=== PATIENT | female | born 2000 | race Caucasian/White ===

== ENCOUNTER 2018-06-16 16:43 | Inpatient (IN) | payer MEDICAID ==
[~2018-06-16] VITALS: Ht 172.7 cm; Wt 90.5 kg
--- NOTE | ~2018-06-16 | OP ---
PATIENT NAME: JUANPABLO JAY MEDICAL RECORD: [id number] :98 LOCATION:D.M3 D.1213 ADMISSION DATE:06/16/18 SURGEON: FLOR PAINTER MD DATE OF OPERATION: 06/22/2018 SURGEON: Flor Painter MD ANESTHESIA: General anesthesia by Jaime Montes De Oca CRNA. DIAGNOSES: Left renal stone with pyelonephritis, solitary left kidney. PROCEDURE: Cystoscopy, left ureteral stent exchange, left retrograde pyelogram, left ureteroscopy. FINDINGS: Radiodense renal stone has migrated to the lower pole lateral carlton. BLOOD LOSS: None. CLINICAL HISTORY: This is a 17-year-old female with a solitary left kidney. She presented with left pyelonephritis. The cultures are growing E. coli sensitive to Levaquin. She is currently on IV Levaquin. She has a 7-mm renal stone. Initially when she was having high fevers, we placed a left ureteral stent to let her decompress and allowed her white blood cell count to normalize with IV Levaquin. She has been afebrile for a few days now. Today, we are going to try to remove the infected renal stone. She is not allergic to any medications. Since she already had Levaquin IV on the floor, we did not give her any further antibiotics. DESCRIPTION OF PROCEDURE: The patient was given induction of general anesthetic. She was then placed in the dorsal lithotomy position and prepped and draped. A 21-Cameroonian cystoscope with 30-degree lens was used for visualization. The stone is radiodense. We could see it on fluoroscopy. In order to fully identify its location within the kidney, we performed a left retrograde pyelogram. The left ureteral orifice was intubated with an open-ended ureteral catheter. Diluted contrast was then injected. This showed that the stone was in a lower pole lateral carlton. Through the lumen of the ureteral catheter, we inserted a Sensor wire up to the renal pelvis. The ureteral catheter was then removed. Over the Sensor wire, we inserted a 12/14 ureteral access sheath. Once the access sheath was in correct position, the ureteral dilator portion of the access sheath as well as the wire was removed, leaving the sheath in place. A flexible ureteroscope was then introduced and we entered into the left kidney. The calices could be easily seen. However, the angle of the lower pole lateral carlton is very hard for me to get a wire into. I attempted multiple times to try to get a basket into this carlton, but I was unsuccessful. The scope has to almost retroflex on itself in order to get into this carlton. After multiple unsuccessful attempts, I finally decided to abandon this approach. The scope was removed. The dilator of the sheath as well as the wire were placed back in. The wire was left in position while the ureteral access sheath was entirely removed. The wire was then backloaded on to the cystoscope. Over the wire, we inserted the 6-Cameroonian x 24-cm ureteral stent. The string on the distal end of the stent is maintained. It was taped to the suprapubic region with a piece of Tegaderm. The scope was removed entirely before this. I will arrange for the patient to have lithotripsy as an outpatient. OPERATIVE REPORT [id number] JUANPABLO JAY TRANSINT:[id number] Voice Confirmation ID: [id number] DOCUMENT ID: [id number] FLOR PAINTER MD at 0820 CC: [id number] DICTATION DATE: 06/22/18 1632 GYMNASTIC TEACHER: 06/22/18 2311 DIS IN 06/22/18 [facility] [address] [place] [address]
--- NOTE | ~2018-06-16 | OP ---
PATIENT NAME: JUANPABLO JAY MEDICAL RECORD: [id number] :98 LOCATION:D.M3 D.1213 ADMISSION DATE:06/16/18 SURGEON: RUBEN PAINTER MD DATE OF OPERATION: 06/17/2018 SURGEON: Ruben Painter MD ANESTHESIA: General anesthesia by Pravin Sheridan CRNA DIAGNOSES: Solitary left kidney, left pyelonephritis with a left 7 mm renal stone and left hydronephrosis. PROCEDURES: Cystoscopy, bilateral retrograde pyelogram, left ureteral stent insertion 6-Cymraes x 24 cm without string attached. FINDINGS: On cystoscopy, she has single ureteral orifices bilaterally. The right ureter is full length of a blind ending on the retrograde pyelogram. The left ureter shows no obstruction, but there is high-grade hydronephrosis of the left UP junction. There is radiodense left renal stone 7 mm in size. BLOOD LOSS: None. CLINICAL HISTORY: This is a 17-year-old female who is not known to have a kidney stone previously. There is a positive family history of kidney stones. She has been complaining of nausea and vomiting, fevers and headaches for the past 5 days. Yesterday, she had severe left flank pain and she came to the Emergency Room. She has fevers up to [address] scan, she was found to have a solitary left kidney. There is a stone in the left kidney 7 mm in size. She has findings consistent with pyelonephritis in the left kidney. Her urine culture is growing Gram-negative rods. Her white blood cell count was 16.6 when she was admitted. With IV Levaquin, her white count has gone down somewhat to the 13 range. She still has high spiking fevers and ongoing left flank pain. Because she has a solitary left kidney with potential obstruction by a left kidney stone, I am going to insert a left ureteral stent and allow the left kidney to be relieved of any potential obstruction. We will then let her settle down and keep her on antibiotics until we can get rid of the infected stone at a later date. Since she is already on IV Levaquin, we did not give her any further antibiotics. DESCRIPTION OF PROCEDURE: The patient was given induction of general anesthesia. She was then placed in dorsal lithotomy position and prepped and draped. A 21-Cymraes cystoscope with 30-degree lens was used for visualization. She has a generally inflamed bladder due to her recent cystitis. She has ureteral orifices bilaterally. I therefore performed a retrograde pyelogram on the right ureter first. This shows a full length ureter with no hydronephrosis. It goes all the way up to where UP junction normally would be, but it is blind ending. We did not see any renal pelvis at all. We then turned our attention to the left ureter. A 5-Cymraes open-ended ureteral catheter was used to inject diluted contrast. The ureter was not hydronephrotic, but the kidney was extremely obstructed. It was hydronephrotic. Furthermore, once we allowed the contrast to drain out of the ureter, the kidney did not drain. She does have high-grade obstruction there. Through the lumen of the ureteral catheter, we inserted a Sensor wire up into the renal pelvis. We then removed the ureteral catheter entirely. Over the wire, we inserted the 6-Cymraes x 24-cm ureteral stent. Once the stent was in correct position, the wire was withdrawn entirely. OPERATIVE REPORT [id number] JUANPABLO JAY The distal end of the stent was pushed into the bladder using a pusher. Because I expect the patient will maintain the stent for a period of a couple of weeks at least, the string on the distal end of stent was removed. The bladder was emptied through the cystoscope and then the patient was awakened and brought to the recovery room. TRANSINT:[id number] Voice Confirmation ID: [id number] DOCUMENT ID: [id number] RUBEN PAINTER MD at 1338 CC: [id number] DICTATION DATE: 06/17/181842 AUTOMOBILE CONTRACT CLERK: 06/17/[id number] ADM IN [facility] [address] [place] [id number]
[2018-06-16] MEDS ORDERED: ADDERALL 30 MG30 MG PO (16:49)
[2018-06-16 17:10] LABS: BASOPHILS 0.1 % (0-2); EOSINOPHILS 0.1 % (0-7); HEMATOCRIT 35.9 % (36.0-48.0); HEMOGLOBIN 12.2 g/dL (12-16); IMMATURE GRANULOCYTES 0.3 % (0-5); LYMPHOCYTES 6.7 % (15-50); MCV 94.2 fL (80.0-100.0); MEAN PLATELET VOLUME 10.1 fL (7.4-10.4); MONOCYTES 10.4 % (2-11); NEUTROPHILS 82.4 % (40-80); RBC 3.81 10x6/uL (4.00-5.40); RDW 12.6 % (11.5-14.5); WBC 16.6 10x3/uL (4.8-10.8)
[2018-06-16 17:14] LABS: PLATELET COUNT 176 10x3/uL (130-400)
[2018-06-16 17:20] LABS: APPEARANCE HAZY (CLEAR); COLOR YELLOW (YELLOW)
[2018-06-16 17:21] LABS: BILIRUBIN NEGATIVE (NEGATIVE); GLUCOSE NEGATIVE (NEGATIVE); KETONE NEGATIVE (NEGATIVE); NITRITE NEGATIVE (NEGATIVE); PROTEIN TRACE mg/dL (NEGATIVE); UROBILINOGEN NORMAL (NORMAL)
[2018-06-16 17:22] LABS: BACTERIA MANY /hpf (NONE SEEN); MUCUS <1+ /lpf (NONE SEEN); RED CELLS - URINE 0-5 /hpf (0-5); WHITE CELLS - URINE >50 /hpf (0-5)
[2018-06-16 17:23] LABS: HCG URINE NEGATIVE (NEGATIVE)
[2018-06-16 18:31] LABS: ALKALINE PHOSPHATASE 50 U/L (46-116); ALT (SGPT) 10 U/L (10-68); AMYLASE - SERUM 20 U/L (25-115); CALC OSMOLALITY 270 mosm/kg (275-300); CALCIUM 8.4 mg/dL (8.5-10.1); CARBON DIOXIDE 26.7 mmol/L (21.0-32.0); CHLORIDE - SERUM 102 mmol/L (98-107); CREATININE - SERUM 0.9 mg/dL (0.6-1.3); GLUCOSE 95 mg/dL (74-106); LIPASE 57 U/L (73-393); POTASSIUM - SERUM 3.8 mmol/L (3.5-5.1); SODIUM 136 mmol/L (136-145); UREA NITROGEN 9 mg/dL (7-18); eGFR NON AFRICAN AMERICAN 85 mL/min (90-120)
[2018-06-16 20:00] VITALS: BP 114/66
[2018-06-16 21:26] VITALS: BP 114/66
[2018-06-17] VITALS (8 sets, daily range): BP systolic 50–125; BP diastolic 42–80; Ht 172.7 cm; Wt 90.5 kg
[2018-06-17] MEDS ORDERED: ACETAMINOPHEN500 M1 PO (02:15)
[2018-06-17] MEDS ORDERED: IBUPROFEN400 MG PO (02:16)
[2018-06-17 12:47] LABS: BASOPHILS 0.1 % (0-2); EOSINOPHILS 0.2 % (0-7); HEMATOCRIT 30.9 % (36.0-48.0); HEMOGLOBIN 10.2 g/dL (12-16); IMMATURE GRANULOCYTES 0.2 % (0-5); LYMPHOCYTES 8.2 % (15-50); MCH 31.5 pg (26.0-34.0); MCV 95.4 fL (80.0-100.0); MEAN PLATELET VOLUME 9.9 fL (7.4-10.4); MONOCYTES 8.1 % (2-11); NEUTROPHILS 83.2 % (40-80); RBC 3.24 10x6/uL (4.00-5.40); RDW 12.8 % (11.5-14.5); WBC 13.1 10x3/uL (4.8-10.8)
[2018-06-17 12:50] LABS: PLATELET COUNT 135 10x3/uL (130-400)
[2018-06-17 12:54] LABS: ALBUMIN 2.3 g/dL (3.4-5.0); ALKALINE PHOSPHATASE 49 U/L (46-116); ALT (SGPT) 11 U/L (10-68); BILIRUBIN - TOTAL 0.54 mg/dL (0.2-1.3); CALC OSMOLALITY 275 mosm/kg (275-300); CALCIUM 8.1 mg/dL (8.5-10.1); CARBON DIOXIDE 23.5 mmol/L (21.0-32.0); CHLORIDE - SERUM 106 mmol/L (98-107); CREATININE - SERUM 0.8 mg/dL (0.6-1.3); GLUCOSE 75 mg/dL (74-106); POTASSIUM - SERUM 3.6 mmol/L (3.5-5.1); SODIUM 139 mmol/L (136-145); UREA NITROGEN 9 mg/dL (7-18); eGFR NON AFRICAN AMERICAN > 90 mL/min (90-120)
[2018-06-18 00:20] VITALS: BP 124/61
[2018-06-18 04:18] VITALS: BP 102/69
[2018-06-18 04:51] LABS: BASOPHILS 0.1 % (0-2); EOSINOPHILS 0 % (0-7); HEMATOCRIT 29.7 % (36.0-48.0); HEMOGLOBIN 9.9 g/dL (12-16); IMMATURE GRANULOCYTES 0.4 % (0-5); LYMPHOCYTES 4.9 % (15-50); MCH 31.2 pg (26.0-34.0); MCHC 33.3 g/dL (31.0-37.0); MCV 93.7 fL (80.0-100.0); MEAN PLATELET VOLUME 9.9 fL (7.4-10.4); MONOCYTES 5.1 % (2-11); NEUTROPHILS 89.5 % (40-80); PLATELET COUNT 150 10x3/uL (130-400); RBC 3.17 10x6/uL (4.00-5.40); RDW 12.6 % (11.5-14.5)
[2018-06-18 05:06] LABS: WBC 17.2 10x3/uL (4.8-10.8)
[2018-06-18 05:21] LABS: ALBUMIN 2.1 g/dL (3.4-5.0); ALKALINE PHOSPHATASE 57 U/L (46-116); ALT (SGPT) 11 U/L (10-68); BILIRUBIN - TOTAL 0.25 mg/dL (0.2-1.3); CALC OSMOLALITY 274 mosm/kg (275-300); CALCIUM 7.9 mg/dL (8.5-10.1); CHLORIDE - SERUM 108 mmol/L (98-107); CREATININE - SERUM 0.7 mg/dL (0.6-1.3); POTASSIUM - SERUM 4.1 mmol/L (3.5-5.1); PROTEIN - SERUM 5.9 g/dL (6.4-8.2); SODIUM 137 mmol/L (136-145); UREA NITROGEN 10 mg/dL (7-18); eGFR NON AFRICAN AMERICAN > 90 mL/min (90-120)
[2018-06-18 05:26] LABS: GLUCOSE 138 mg/dL (74-106)
[2018-06-18 07:18] VITALS: BP 112/77
[2018-06-18 11:57] VITALS: BP 118/76
[2018-06-18 16:02] VITALS: BP 103/66
[2018-06-18 20:08] VITALS: BP 110/71
[2018-06-19] VITALS: BP 101/58
[2018-06-19 04:00] VITALS: BP 119/73
[2018-06-19 07:29] LABS: BASOPHILS 0.1 % (0-2); EOSINOPHILS 0 % (0-7); HEMATOCRIT 30.6 % (36.0-48.0); IMMATURE GRANULOCYTES 0.4 % (0-5); LYMPHOCYTES 12.5 % (15-50); MCH 31.3 pg (26.0-34.0); MCHC 32.7 g/dL (31.0-37.0); MCV 95.6 fL (80.0-100.0); MEAN PLATELET VOLUME 10.3 fL (7.4-10.4); MONOCYTES 6.4 % (2-11); NEUTROPHILS 80.6 % (40-80); RDW 13.2 % (11.5-14.5); WBC 16.7 10x3/uL (4.8-10.8)
[2018-06-19 07:37] LABS: PLATELET COUNT 230 10x3/uL (130-400)
[2018-06-19 07:48] LABS: ALBUMIN 2.3 g/dL (3.4-5.0); ALKALINE PHOSPHATASE 54 U/L (46-116); ALT (SGPT) 13 U/L (10-68); BILIRUBIN - TOTAL 0.14 mg/dL (0.2-1.3); CALC OSMOLALITY 279 mosm/kg (275-300); CALCIUM 8.3 mg/dL (8.5-10.1); CHLORIDE - SERUM 110 mmol/L (98-107); CREATININE - SERUM 0.8 mg/dL (0.6-1.3); GLUCOSE 95 mg/dL (74-106); POTASSIUM - SERUM 3.5 mmol/L (3.5-5.1); PROTEIN - SERUM 6.1 g/dL (6.4-8.2); SODIUM 141 mmol/L (136-145); UREA NITROGEN 10 mg/dL (7-18); eGFR NON AFRICAN AMERICAN > 90 mL/min (90-120)
[2018-06-19 07:49] VITALS: BP 134/68
[2018-06-19 11:00] VITALS: BP 114/75
[2018-06-19 15:00] VITALS: BP 99/54
[2018-06-19 21:52] VITALS: BP 109/71
[2018-06-20 00:24] VITALS: BP 101/48
[2018-06-20 04:15] VITALS: BP 123/69
[2018-06-20 07:04] LABS: BASOPHILS 0.1 % (0-2); EOSINOPHILS 0.6 % (0-7); HEMATOCRIT 30.8 % (36.0-48.0); HEMOGLOBIN 10.1 g/dL (12-16); IMMATURE GRANULOCYTES 0.3 % (0-5); LYMPHOCYTES 20.8 % (15-50); MCH 30.7 pg (26.0-34.0); MCHC 32.8 g/dL (31.0-37.0); MEAN PLATELET VOLUME 9.7 fL (7.4-10.4); MONOCYTES 10.8 % (2-11); NEUTROPHILS 67.4 % (40-80); PLATELET COUNT 235 10x3/uL (130-400); RBC 3.29 10x6/uL (4.00-5.40); RDW 13.2 % (11.5-14.5)
[2018-06-20 07:05] LABS: MCV 93.6 fL (80.0-100.0)
[2018-06-20 07:28] LABS: ALBUMIN 1.8 g/dL (3.4-5.0); ALKALINE PHOSPHATASE 70 U/L (46-116); BILIRUBIN - TOTAL 0.22 mg/dL (0.2-1.3); CALCIUM 7.1 mg/dL (8.5-10.1); CARBON DIOXIDE 20.8 mmol/L (21.0-32.0); CHLORIDE - SERUM 109 mmol/L (98-107); CREATININE - SERUM 0.7 mg/dL (0.6-1.3); GLUCOSE 84 mg/dL (74-106); POTASSIUM - SERUM 3.3 mmol/L (3.5-5.1); PROTEIN - SERUM 4.8 g/dL (6.4-8.2); SODIUM 140 mmol/L (136-145); eGFR NON AFRICAN AMERICAN > 90 mL/min (90-120)
[2018-06-20 07:30] LABS: ALT (SGPT) 24 U/L (10-68); CALC OSMOLALITY 274 mosm/kg (275-300); UREA NITROGEN 5 mg/dL (7-18)
[2018-06-20 07:39] VITALS: BP 118/64
[2018-06-20 11:21] VITALS: BP 123/84
[2018-06-20 16:05] VITALS: BP 132/73
[2018-06-21 00:25] VITALS: BP 111/73
[2018-06-21 04:31] VITALS: BP 124/76
[2018-06-21 06:13] LABS: BASOPHILS 0.1 % (0-2); EOSINOPHILS 0.6 % (0-7); HEMATOCRIT 31.1 % (36.0-48.0); HEMOGLOBIN 10.3 g/dL (12-16); IMMATURE GRANULOCYTES 0.6 % (0-5); MCHC 33.1 g/dL (31.0-37.0); MCV 93.7 fL (80.0-100.0); MEAN PLATELET VOLUME 9.6 fL (7.4-10.4); MONOCYTES 14.7 % (2-11); PLATELET COUNT 260 10x3/uL (130-400); RBC 3.32 10x6/uL (4.00-5.40); RDW 13.1 % (11.5-14.5); WBC 9.5 10x3/uL (4.8-10.8)
[2018-06-21 06:31] LABS: ALBUMIN 1.8 g/dL (3.4-5.0); ALKALINE PHOSPHATASE 90 U/L (46-116); ALT (SGPT) 51 U/L (10-68); BILIRUBIN - TOTAL 0.29 mg/dL (0.2-1.3); CALC OSMOLALITY 270 mosm/kg (275-300); CALCIUM 7.9 mg/dL (8.5-10.1); CARBON DIOXIDE 23.9 mmol/L (21.0-32.0); CHLORIDE - SERUM 106 mmol/L (98-107); CREATININE - SERUM 0.8 mg/dL (0.6-1.3); GLUCOSE 81 mg/dL (74-106); POTASSIUM - SERUM 4.1 mmol/L (3.5-5.1); PROTEIN - SERUM 5.5 g/dL (6.4-8.2); SODIUM 137 mmol/L (136-145); UREA NITROGEN 7 mg/dL (7-18); eGFR NON AFRICAN AMERICAN > 90 mL/min (90-120)
[2018-06-21 07:26] VITALS: BP 118/65
[2018-06-21 15:14] VITALS: BP 126/70
[2018-06-21 21:31] VITALS: BP 147/88
[2018-06-22 05:11] VITALS: BP 119/71
[2018-06-22 05:26] LABS: BASOPHILS 0.1 % (0-2); HEMATOCRIT 34.5 % (36.0-48.0); HEMOGLOBIN 11.5 g/dL (12-16); IMMATURE GRANULOCYTES 1.3 % (0-5); LYMPHOCYTES 37.4 % (15-50); MCH 31.2 pg (26.0-34.0); MCHC 33.3 g/dL (31.0-37.0); MCV 93.5 fL (80.0-100.0); MEAN PLATELET VOLUME 9.5 fL (7.4-10.4); MONOCYTES 11.8 % (2-11); NEUTROPHILS 47.4 % (40-80); PLATELET COUNT 309 10x3/uL (130-400); RBC 3.69 10x6/uL (4.00-5.40); RDW 12.9 % (11.5-14.5); WBC 7.5 10x3/uL (4.8-10.8)
[2018-06-22 05:40] LABS: ALKALINE PHOSPHATASE 84 U/L (46-116); BILIRUBIN - TOTAL 0.22 mg/dL (0.2-1.3); CALC OSMOLALITY 274 mosm/kg (275-300); CALCIUM 7.9 mg/dL (8.5-10.1); CARBON DIOXIDE 27.5 mmol/L (21.0-32.0); CHLORIDE - SERUM 104 mmol/L (98-107); CREATININE - SERUM 0.8 mg/dL (0.6-1.3); GLUCOSE 84 mg/dL (74-106); SODIUM 139 mmol/L (136-145); UREA NITROGEN 6 mg/dL (7-18); eGFR NON AFRICAN AMERICAN > 90 mL/min (90-120)
[2018-06-22 05:45] LABS: ALT (SGPT) 37 U/L (10-68)
[2018-06-22 07:45] VITALS: BP 124/84
[2018-06-22 11:24] VITALS: BP 142/75
[2018-06-22 17:27] VITALS: BP 144/81
== END 2018-06-22 19:22 | disposition home or self-care (01) | DRG 661 ==
LOC: D.ER 16:43 → D.M3 18:55 → D.ER 19:46 → D.M3 06-22 19:22
PROVIDERS: Emergency Medicine; Family Medicine; Urology
PROC: BT141ZZ Fluoroscopy of Kidneys, Ureters and Bladder using Low Osmolar Contrast (ICD-10-PCS; principal; 2018-06-17 17:45)
PROC: 0T778DZ Dilation of Left Ureter with Intraluminal Device, Via Natural or Artificial Opening Endoscopic (ICD-10-PCS; 2018-06-17 17:45)
PROC: 0T778DZ Dilation of Left Ureter with Intraluminal Device, Via Natural or Artificial Opening Endoscopic (ICD-10-PCS; 2018-06-22)
PROC: 0TP98DZ Removal of Intraluminal Device from Ureter, Via Natural or Artificial Opening Endoscopic (ICD-10-PCS; 2018-06-22)
PROC: BT1F1ZZ Fluoroscopy of Left Kidney, Ureter and Bladder using Low Osmolar Contrast (ICD-10-PCS; 2018-06-22)
DX: N10 Acute pyelonephritis (principal); D50.9 Iron deficiency anemia, unspecified; E86.9 Volume depletion, unspecified; F90.9 Attention-deficit hyperactivity disorder, unspecified type; K59.09 Other constipation; F41.9 Anxiety disorder, unspecified; B96.20 Unspecified Escherichia coli [E. coli] as the cause of diseases classified elsewhere; N20.0 Calculus of kidney

== ENCOUNTER 2018-06-29 11:35 | Day surgery (SDC) | payer BC ==
[~2018-06-29] VITALS: Ht 170.2 cm; Wt 90.9 kg
--- NOTE | ~2018-06-29 | OP ---
PATIENT NAME: JUANPABLO JAY MEDICAL RECORD: [id number] :98 LOCATION:JAROD ADMISSION DATE: SURGEON: FLOR PAINTER MD DATE OF OPERATION: 06/29/2018 SURGEON: Flor Painter MD ANESTHESIA: TIVA by Safia Escalante CRNA DIAGNOSIS: A 7-mm left renal stone. PROCEDURE: Left ESWL times 3000 shocks. FINDINGS: Radiodense stone. BLOOD LOSS: None. 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 She was admitted to hospital initially with pyelonephritis due to obstruction by an infected left renal stone. She had a left ureteral stent inserted. I attempted to perform a flexible ureteroscopy and stone extraction, but I was unable to reach the stone with the flexible ureteroscope. A stent was placed back. She comes now to have ESWL performed. Her urinary tract infection was with Escherichia coli sensitive to Levaquin. She continues to be on Levaquin orally at home until she gets the stone cleared out. We gave her a dose of Levaquin IV. DESCRIPTION OF PROCEDURE: The patient was given IV sedation. She was placed on the treatment table. The stone was identified and targeted in 2 planes. The 3000 shocks were given to the stone. By the 700th shock, the stone was already markedly wet cleaner machine in appearance as it became fragmented. The patient was then brought back to the preoperative holding area once the procedure was terminated. I will see her in followup in 2 weeks' time with a KUB. If the stone has passed, then her stent will be removed at that time. TRANSINT:[id number] Voice Confirmation ID: [id number] DOCUMENT ID: [id number] FLOR PAINTER MD at 1652 CC: [id number] DICTATION DATE: 06/29/18 1355 SMEARER: 06/29/18 1458 REG [facility] [address] [place] [address]
[~2018-06-29 11:35] MED LIST: ACETAMINOPHEN500 M1 PO; ADDERALL 30 MG30 MG PO; IBUPROFEN400 MG PO
[2018-06-29 12:16] VITALS: BP 120/70; Ht 170.2 cm; Wt 90.9 kg
== END 2018-06-29 15:20 | disposition home or self-care (01) ==
LOC: D.OPS 11:35
DX: N20.0 Calculus of kidney (principal); Q60.0 Renal agenesis, unilateral; Z79.2 Long term (current) use of antibiotics; Z01.812 Encounter for preprocedural laboratory examination

== ENCOUNTER → 2018-07-14 10:55 | Outpatient (CLI) | payer BC ==
[2018-06-29 12:16] VITALS: BMI 31.4
== END | disposition home or self-care (01) ==
LOC: D.RAD 10:55
DX: N20.0 Calculus of kidney (principal)

== ENCOUNTER → 2018-07-19 11:08 | Outpatient (CLI) | payer BC ==
[2018-06-29 12:16] VITALS: BMI 31.4
== END | disposition home or self-care (01) ==
LOC: D.RAD 11:08
DX: N20.0 Calculus of kidney (principal)

== ENCOUNTER 2018-07-27 11:25 | Day surgery (SDC) | payer BC ==
[~2018-07-27] VITALS: Ht 170.2 cm; Wt 88.6 kg
--- NOTE | ~2018-07-27 | OP ---
PATIENT NAME: JUANPABLO JAY MEDICAL RECORD: [id number] :98 LOCATION:JAROD ADMISSION DATE: SURGEON: FLOR PAINTER MD DATE OF OPERATION: 07/27/2018 SURGEON: Flor Painter MD ANESTHESIA: TIVA by Safia Escalante CRNA DIAGNOSIS: Left renal stone fragments. PROCEDURE: Left ESWL times 3000 shocks. BLOOD LOSS: None. CLINICAL HISTORY: This is a 17-year-old female who has a 7-mm stone in the left kidney. This was treated with stent insertion and left ESWL. On followup KUB, the stone had fractured into smaller stones, but they were still in the kidney. She comes today to have further treatment of these stones. She was given Ancef communication coordinator to the OR. DESCRIPTION OF PROCEDURE: The patient was given IV sedation. She was placed in supine position on the treatment table. The stone fragment within the ureteral stent coil was first targeted. This was done in 2 planes. Once this broke up sufficiently, we then targeted some of the other larger fragments scattered in the renal pelvis. At the end of the procedure, these fragments are much smaller than they previously were. The patient will be going home with the stent still inside. I will see her in followup in 2 weeks' time with a KUB to determine if she has passed her stones and to see what we can pull the stent out. TRANSINT:[id number] Voice Confirmation ID: [id number] DOCUMENT ID: [id number] FLOR PAINTER MD at 0812 CC: [id number] DICTATION DATE: 07/27/18 1406 LASER TECHNICIAN: 07/27/18 1724 PRE [facility] [address] [place] [address]
[2018-07-27] MEDS ORDERED: FLOMAX0.4 MG PO (11:40)
[2018-07-27] MEDS ORDERED: LEVOFLOXACIN500 MG PO (11:40)
[2018-07-27] MEDS ORDERED: HYDROCODON-ACE1 EAC7 PO (11:41)
[2018-07-27 11:46] VITALS: BP 113/77; Ht 170.2 cm; Wt 88.6 kg
[2018-07-27 11:50] LABS: HCG URINE NEGATIVE (NEGATIVE)
== END 2018-07-27 23:00 | disposition home or self-care (01) ==
LOC: D.OPS 11:25
PROVIDERS: Urology
DX: N20.0 Calculus of kidney (principal); Z01.812 Encounter for preprocedural laboratory examination

== ENCOUNTER → 2018-08-18 12:16 | Outpatient (CLI) | payer BC ==
[2018-07-27 11:46] VITALS: BMI 30.6
[~2018-08-18 12:16] MED LIST changes: +FLOMAX0.4 MG PO; +HYDROCODON-ACE1 EAC7 PO; +LEVOFLOXACIN500 MG PO
== END | disposition home or self-care (01) ==
LOC: D.RAD 08-17 11:00
PROVIDERS: Internal Medicine
DX: N20.0 Calculus of kidney (principal)

== ENCOUNTER → 2018-08-18 19:00 | Outpatient (CLI) | payer BC ==
[2018-07-27 11:46] VITALS: BMI 30.6
== END | disposition home or self-care (01) ==
LOC: D.LABREF 19:00
DX: N20.0 Calculus of kidney (principal)

== ENCOUNTER → 2018-11-29 15:20 | Outpatient (CLI) | payer BC ==
[2018-07-27 11:46] VITALS: BMI 30.6
[2018-11-29 15:51] LABS: BASOPHILS 0.1 % (0-2); EOSINOPHILS 0.3 % (0-7); HEMATOCRIT 38.1 % (36.0-48.0); HEMOGLOBIN 12.9 g/dL (12-16); IMMATURE GRANULOCYTES 0.2 % (0-5); LYMPHOCYTES 11.2 % (15-50); MCHC 33.9 g/dL (31.0-37.0); MCV 94.5 fL (80.0-100.0); MEAN PLATELET VOLUME 9.5 fL (7.4-10.4); MONOCYTES 9.3 % (2-11); NEUTROPHILS 78.9 % (40-80); RBC 4.03 10x6/uL (4.00-5.40); RDW 12.4 % (11.5-14.5); WBC 11.6 10x3/uL (4.8-10.8)
[2018-11-29 16:03] LABS: HCG URINE NEGATIVE (NEGATIVE)
[2018-11-29 16:05] LABS: PLATELET COUNT 203 10x3/uL (130-400)
[2018-11-29 16:28] LABS: ALBUMIN 3.6 g/dL (3.4-5.0); ALKALINE PHOSPHATASE 65 U/L (46-116); ALT (SGPT) 16 U/L (10-68); BILIRUBIN - TOTAL 0.59 mg/dL (0.2-1.3); CALC OSMOLALITY 275 mosm/kg (275-300); CALCIUM 8.3 mg/dL (8.5-10.1); CARBON DIOXIDE 25.5 mmol/L (21.0-32.0); CHLORIDE - SERUM 101 mmol/L (98-107); CREATININE - SERUM 0.9 mg/dL (0.6-1.3); GLUCOSE 86 mg/dL (74-106); PROTEIN - SERUM 7.5 g/dL (6.4-8.2); SODIUM 138 mmol/L (136-145); UREA NITROGEN 16 mg/dL (7-18); eGFR NON AFRICAN AMERICAN 85 mL/min (90-120)
== END | disposition home or self-care (01) ==
LOC: D.CT 15:20
PROVIDERS: ATTEND Urology
DX: Z87.442 Personal history of urinary calculi (principal); N10 Acute pyelonephritis

== ENCOUNTER → 2018-12-22 17:27 | Outpatient (CLI) | payer SELFPAY ==
[2018-07-27 11:46] VITALS: BMI 30.6
== END | disposition home or self-care (01) ==
LOC: D.LABREF 17:27
PROVIDERS: ATTEND Urology
DX: D72.829 Elevated white blood cell count, unspecified (principal); R31.9 Hematuria, unspecified